=== PATIENT | female | born 1995 | race African-American/Black ===

== ENCOUNTER 2020-08-10 21:18 | Emergency (ER) | payer SELFPAY ==
[2020-08-10] MEDS ORDERED: IBUPROFEN 800 MG TABLET PO ONE (21:49)
--- NOTE | 2020-08-10 21:52 | ER Document Report ---
ED Medical Screen (RME) - General Chief Complaint: Knee Pain Stated Complaint: LEFT KNEE PAIN Time Seen by Provider: 08/10/20 21:49 Mode of Arrival: Wheelchair Information source: Patient Notes: 24-year-old female presented to ED for complaint of pain to the left knee. She states the pain is a 5 out of 5. She states just before she came tonight she was walking and the knee gave out and then she fell. She states is been happening on and off for about the last 2 weeks. She states she did play sports when she was in school. Patient is alert oriented respirations regular nonlabored speaking in full sentences. I have greeted and performed a rapid initial assessment of this patient. A comprehensive ED assessment and evaluation of the patient, analysis of test results and completion of medical decision making process will be conducted by an additional ED providers. - Related Data Allergies/Adverse Reactions: No Known Allergies Allergy (Unverified 08/10/20 21:46) Physical Exam - Vital signs Vitals: Temp Pulse Resp BP Pulse Ox 98.0 F 72 18 130/90 H 100 08/10/20 21:28 08/10/20 21:28 08/10/20 21:28 08/10/20 21:28 08/10/20 21:28 Course - Vital Signs Vital signs: Temp Pulse Resp BP Pulse Ox 98.0 F 72 18 130/90 H 100 08/10/20 21:28 08/10/20 21:28 08/10/20 21:28 08/10/20 21:28 08/10/20 21:28
--- NOTE | 2020-08-10 22:35 | RADIOLOGY REPORT (SQ) ---
EXAM DESCRIPTION: XR KNEE 4 OR MORE VIEWS COMPLETED DATE/TME: 08/10/2020 21:49 CLINICAL HISTORY: 24 years, Female, States left knee gave out then fell COMPARISON: None. NUMBER OF VIEWS: 4 TECHNIQUE: 4 views left knee LIMITATIONS: None. FINDINGS: Negative for fracture or dislocation. No evidence for joint effusion. IMPRESSION: Negative exam copyright 2010 [employer]- All Rights Reserved
[2020-08-11] MEDS ORDERED: HYDROCODONE/ACETAMINOPHEN 5-325 MG (6 TAB/ER DISP) PO PRN (05:09)
--- NOTE | 2020-08-11 05:16 | ER Document Report ---
HPI - HPI Time Seen by Provider: 08/10/20 21:49 Pain Level: 5 Context: Patient is a 24-year-old female presents emergency department with a chief complaint of left knee pain. Patient states that she was just walking and she felt her knee give out on her. She denies any other previous injury, but states that she had had pain in the knee before. States that she used to play sports and had problems with her knees then, but never had any other problems. - ROS Systems Reviewed and Negative: Yes All other systems reviewed and negative - CONSTITUTIONAL Constitutional: DENIES: Fever, Chills - GASTROINTESTINAL Gastrointestinal: DENIES: Abdominal Pain, Nausea - MUSCULOSKELETAL Musculoskeletal: REPORTS: Extremity pain - left knee. DENIES: Back Pain, Swelling - DERM Skin Color: Normal Skin Problems: None Past Medical History - General Information source: Patient - Social History Smoking Status: Never Smoker Frequency of alcohol use: None Drug Abuse: None Family History: Reviewed & Not Pertinent Vertical Provider Document - CONSTITUTIONAL Agree With Documented VS: Yes Exam Limitations: No Limitations General Appearance: No Apparent Distress - HEENT HEENT: Atraumatic, Normocephalic, PERRLA - NECK Neck: Normal Inspection - RESPIRATORY Respiratory: No Respiratory Distress - CARDIOVASCULAR Cardiovascular: Regular Rate, Regular Rhythm Pulses: Normal: Posterior tibial, Dorsalis pedis - MUSCULOSKELETAL/EXTREMETIES Musculoskeletal/Extremeties: Tender - left knee, No Edema. negative: FROM - decreased to left knee - NEURO Level of Consciousness: Awake, Alert, Appropriate - DERM Integumentary: Warm, Dry, No Rash Course - Re-evaluation Re-evalutation: 08/11/20 19:03 Patient is not wanting to move her knee, but I was able to move her knee on a dependent basis. See immobilization note. Capillary refill less than 3 seconds. Dorsalis pedis and posterior tibial pulses 2+. No vascular compromise noted. Follow-up precautions were given. Verbal discharge instructions were given to the patient. They verbalized understanding. They are stable for discharge. - Vital Signs Vital signs: Temp Pulse Resp BP Pulse Ox 97.8 F 75 16 111/86 H 100 08/11/20 01:10 08/11/20 01:10 08/11/20 01:10 08/11/20 01:10 08/11/20 01:10 Procedures - Immobilization Left Knee Pre-Proc Neuro Vasc Exam: Normal Immobilizer type: Yoni wrap, Crutches Performed by: RN Post-Proc Neuro Vasc Exam: Normal, Unchanged from pre-exam Alignment checked and good: Yes Discharge - Discharge Clinical Impression: Left knee pain Qualifiers: Chronicity: acute Qualified Code(s): M25.562 - Pain in left knee Condition: Stable Disposition: HOME, SELF-CARE Additional Instructions: You were seen today in the emergency department for left knee pain. Your x-ray did not show any broken bones or swelling inside the joint. Please rest, elevate, and ice your knee. Use your crutches. Use the Yoni wrap to help with swelling. Take ibuprofen 600 mg every 6 hours. You may take the Annabella provided to you for extreme pain. Take 1 tablet every 6 hours as needed for extreme pain. Forms: Return to Work
[2020-08-11 05:32] VITALS: BP 110/80
== END 2020-08-11 05:31 | disposition home or self-care (01) ==
LOC: ER 21:18
DX: M25.562 Pain in left knee (principal)
CPT/HCPCS: 99283